=== PATIENT | female | born 1980 | race Caucasian/White ===

== ENCOUNTER → 2017-01-18 | Outpatient (CLI) | payer OTHER ==
--- NOTE | ~2017-01-18 | CR219 ---
[facility] A Service of [facility] & [facility] RADIOLOGY TEXT RESULTS PATIENT: JENNIFER BARON LOCATION: [facility] : 78 UNIT #: [id number] AGE: [address]: Drake Reyes MD SEX: F ORDER DR: [id number] [facility] [address] [place], [place] [address] [id number] O MR#: [id number] Acc #: [id number] NAME: JENNIFER BARON : 1980 SEX: F STUDY DATE/TIME: 01/18/2017 12:27 UNIT: [facility] ROOM: STUDY DESCRIPTION: CR Sacrum and Coccyx Min 2 Vie Attending Physician: Drake Reyes M.D. Referring Physician: Drake Reyes M.D. Ordering Physician: Drake Reyes M.D. Primary Care Physician: Meena Palmer M.D. MEDICAL IMAGING REPORT This report is preliminary unless electronic signature is present EXAM Sacrum and coccyx. HISTORY Tailbone pain after falling a week ago. TECHNIQUE Three views of the sacrum and coccyx were obtained. FINDINGS No displaced sacrococcygeal fractures are seen. The lateral view suggests a linear lucency at the sacrococcygeal junction that could reflect a nondisplaced fracture. The sacroiliac joints are symmetric. IMPRESSION I am suspicious for a nondisplaced linear fracture at the sacrococcygeal junction seen on the lateral view only. This is not a definite finding. No displaced fractures or destructive lesions are seen. Dictated by... Dawson Britton M.D. THIS IS AN ELECTRONICALLY VERIFIED REPORT Dawson Britton M.D. at 01/19/2017 10:30 AM ANTONIO/suleiman TD: 01/18/2017 16:15 JOB #: [id number] MEDICAL IMAGING REPORT Page 1 of 1 COPY
--- NOTE | ~2017-01-18 | CR181 ---
[facility] A Service of [facility] & [facility] RADIOLOGY TEXT RESULTS PATIENT: JENNIFER BARON LOCATION: [facility] : 78 UNIT #: [id number] AGE: [address]: Drake Reyes MD SEX: F ORDER DR: [id number] [facility] [address] [place], [place] [address] [id number] O MR#: [id number] Acc #: [id number] NAME: JENNIFER BARON : 1980 SEX: F STUDY DATE/TIME: 01/18/2017 12:26 UNIT: [facility] ROOM: STUDY DESCRIPTION: CR Lumbar Spine 2 or 3 Views Attending Physician: Drake Reyes M.D. Referring Physician: Drake Reyes M.D. Ordering Physician: Drake Reyes M.D. Primary Care Physician: Meena Palmer M.D. MEDICAL IMAGING REPORT This report is preliminary unless electronic signature is present EXAM Lumbar spine series. HISTORY Low back and tailbone pain after falling a week ago. TECHNIQUE Three views of the lumbar spine were obtained. FINDINGS AP and lateral projections of the lumbar segment show good mineralization of both anterior and posterior elements. They are all anatomically normal without indication of fracture, dislocation, or malignant change of a sclerotic or lytic type. There is no congenital defect noted. The sacroiliac joints are normal. IMPRESSION Normal lumbar spine. Dictated by... Dawson Britton M.D. THIS IS AN ELECTRONICALLY VERIFIED REPORT Dawson Britton M.D. at 01/19/2017 10:30 AM ANTONIO/lana TD: 01/18/2017 16:13 JOB #: [id number] MEDICAL IMAGING REPORT Page 1 of 1 COPY
== END | disposition home or self-care (01) ==
LOC: CRAD 12:14
DX: M54.5 Low back pain (principal); M53.3 Sacrococcygeal disorders, not elsewhere classified
CPT/HCPCS: 72100; 72220